=== PATIENT | female | born 1940 | race Caucasian/White ===

== ENCOUNTER 2020-07-30 08:58 | Day surgery (SDC) | payer MEDICARE, OTHER ==
[~2020-07-30] VITALS: Ht 165.1 cm; Wt 60.9 kg
[~2020-07-30 08:58] MED LIST: ACYC800 PO; MELA3 PO; [UNRECOGNIZED DRUG - OTHER] PO
--- NOTE | 2020-07-30 09:36 | NUR ---
[facility] ADMISSION TO UNIT STARTED Ambulatory in Day Surgery History, Chart, Medications and Allergies reviewed before start of procedure.Lungs clear T/O to Auscultation. Patient confirms NPO status and agrees with scheduled surgery.
--- NOTE | 2020-07-30 17:37 | NUR ---
SHIFT SUMMARY PT HAS DONE WELL POST OP. PAIN WELL MANAGED. WORKED W/ BOTH PT & OT. SITTING UP IN CHAIR EATING DINNER. NO COMPLAINTS. PLEASANT AND COOPERATIVE.
[2020-07-31 04:14] LABS: BASOPHILS ABSOLUTE AUTO 0.02 K/mm3 (0.00-0.23); BASOPHILS PERCENT AUTO 0 % (0-2); EOSINOPHILS ABSOLUTE AUTO 0.01 K/mm3 (0.00-0.68); EOSINOPHILS PERCENT AUTO 0 % (0-6); Hematocrit 30.4 % (33.0-51.0); Hemoglobin 9.9 g/dL (11.5-16.0); IMMATURE GRAN ABSOLUTE AUTO 0.04 K/mm3 (0.00-0.10); IMMATURE GRAN PERCENT AUTO 0 % (0-1); LYMPHOCYTES ABSOLUTE AUTO 0.71 K/mm3 (0.84-5.20); LYMPHOCYTES PERCENT AUTO 5 % (21-46); MONOCYTES PERCENT AUTO 8 % (4-13); Mean Corpuscular HGB 30.7 pg (26.0-34.0); Mean Corpuscular HGB Conc 32.6 g/dL (31.5-36.5); Mean Corpuscular Volume 94 fL (80-100); Mean Platelet Volume 10.2 fL (9.1-12.4); NEUTROPHILS ABSOLUTE AUTO 13.62 K/mm3 (1.96-9.15); NEUTROPHILS PERCENT AUTO 87 % (41-73); Platelet Count 257 K/mm3 (150-400); RDW Coefficient Variation 13.1 % (11.7-14.2); RDW Standard Deviation 45.5 fL (35.1-46.3); Red Blood Cell Count 3.22 M/mm3 (3.80-5.20)
[2020-07-31 04:23] LABS: Anion Gap 7 mmol/L (6-16); Blood Urea Nitrogen 16 mg/dL (8-24); Bun/Creatinine Ratio 27.6 (12.0-20.0); CO2, Blood 25 mmol/L (21-32); Chloride, Blood 103 mmol/L (98-108); Creatinine, Blood 0.58 mg/dL (0.40-1.00); Glomerular Filtration Rate >60 (60-); Glucose, Blood 140 mg/dL (70-99); Magnesium, Blood 1.9 mg/dL (1.6-2.4); Potassium, Blood 4.3 mmol/L (3.5-5.5); Sodium, Blood 135 mmol/L (136-145)
--- NOTE | 2020-07-31 04:55 | NUR ---
SHIFT SUMMARY PT A/O X4. SBA UP TO BATHROOM WITH FWW AND GAIT BELT. PT AMBULATING, TOLERATING PO INTAKE, AND VOIDING. PAIN MANAGED WITH TYLENOL AND TORADOL. POLAR PACK IN PLACE TO R HIP. DRESSINGS TO R HIP CDI THROUGHOUT THE SHIFT. VSS OVERNIGHT. PT DENIES FURTHER NEEDS. RESTING QUIETLY WITH CALL LIGHT IN REACH AT THIS TIME.
--- NOTE | 2020-07-31 08:46 | NUR ---
DR RANGEL HERE THIS AM AND PLACED NEW DRESSING.
--- NOTE | 2020-07-31 09:38 | NUR ---
THERAPY WORKING WITH PT.
[2020-07-31] MEDS ORDERED: ENOX40I SC (10:31)
[2020-07-31] MEDS ORDERED: PROM25 PO (10:32)
[2020-07-31] MEDS ORDERED: ROXICODONE5 MG PO (10:33)
--- NOTE | 2020-07-31 11:00 | NUR ---
DISCHARGE: PT EATING, DRINKING, VOIDING. GIVEN BOWEL CARE PER HER REQ (PRUNE JUICE COCKTAIL). PT STATES HAVING MIRALAX AT HOME. PT CLEARED THERAPY TO GO HOME. PT REPORTS HAVING APPR EQUIP INCLUDING WALKER. PT/FAMILY REPORTS UNDERSTANDING OF DISCHARGE INSTRUCTIONS INCLUDING POLAR PAC. IV OUT WNL, NO OTHER IV'S IN PLACE. PT REPORTS HAVING MEDICATIONS AT HOME INCLUDING LOVENOX. PT FAMILY REPORTS ABLE TO GIVE SHOTS ORDERED. PT HAVING MINIMAL PAIN.
== END 2020-07-31 11:07 | disposition home or self-care (01) ==
LOC: ORSCMMR 08:58 → ORD 11:45 → ORSCMMR 11:45 → SURS 13:44 → ORSCMMR 13:44 → SURS 07-31 11:07 → ORSCMMR 07-31 11:07
PROVIDERS: Orthopaedic Surgery
PROC: 8E0YXBZ Computer Assisted Procedure of Lower Extremity (ICD-10-PCS; principal; 2020-07-30 11:45)
PROC: 0SR90JA Replacement of Right Hip Joint with Synthetic Substitute, Uncemented, Open Approach (ICD-10-PCS; principal; 2020-07-30 11:45)
DX: M16.11 Unilateral primary osteoarthritis, right hip (principal); Z79.899 Other long term (current) drug therapy
CPT/HCPCS: 36415; 72170; 80048; 83735; 85025; 88300; 97110; 97116; 97162; 97166; 97530; 97535; A9270; C1713; C1776; J0171; J0690; J0735; J1100; J1650; J1885; J2250; J2370; J2405; J2704; J2795; J3010; J7120; Q2038